=== PATIENT | female | born 1945 | race Caucasian/White ===

== ENCOUNTER 2020-01-15 08:47 | Inpatient (IN) ==
[2020-01-15] MEDS ORDERED: SODIUM CHLORIDE 0.9% 500 ML IV STA ×2 (09:18→10:00)
[2020-01-15 09:31] LABS: Basophils # 0.1 10*3/uL (0.0-0.2); Basophils % 0.4 % (0.0-0.8); Eosinophils # 0.2 10*3/uL (0.0-0.87); Eosinophils % 1.7 % (0.00-10.9); Hematocrit 33.7 VOL% (35.7-47.0); Immature Granulocytes % 0.4 %; Immature Granulocytes Absolute 0.05 #; Lymphocytes # 2.1 10*3/uL (1.4-4.0); Lymphocytes % 17.6 % (21.3-54.2); Mean Corpuscular HGB Conc 32.6 GM/DL (32-36); Mean Corpuscular Volume 96.3 FL (87-102); Mean Platelet Volume 10.5 FL (9.6-12.0); Monocytes % 4.2 % (1.7-12.7); Neutrophils % 75.7 % (38.7-73.9); Platelet Count 233 T/CUMM (130-400); Red Cell Distribution Width 14.4 % (9.3-17.3); White Blood Count 11.9 T/CUMM (4-12)
[2020-01-15 09:45] LABS: INR 4.7; PT Patient Result 50.6 SECS (9.6-12.2)
[2020-01-15 09:49] LABS: Albumin 2.9 G/DL (3.4-5.0); Bilirubin,Total 0.4 MG/DL (0.2-1.0); Calcium 8.9 MG/DL (8.5-10.1); Osmolality,Calculated 278.7 MOS/KG (273-304); Total Protein 7.2 G/DL (6.4-8.3)
[2020-01-15] MEDS ORDERED: PHYTONADIONE 10 MG/1 ML AMP SUBCUT STA (10:57)
[2020-01-15] MEDS ORDERED: MORPHINE 4 MG/1 ML VIAL IV PRN (11:13)
[2020-01-15] MEDS ORDERED: DEXTROSE 10% 250 ML BAG IV PRN (11:13)
[2020-01-15] MEDS ORDERED: GLUCAGON 1 MG VIAL IM PRN (11:13)
[2020-01-15] MEDS ORDERED: ONDANSETRON 4 MG/2 ML VIAL IV PRN (11:13)
[2020-01-15] MEDS ORDERED: NICOTINE 21 MG/24 HR PATCH TRANSDERM PRN (11:13)
[2020-01-15 14:18] LABS: Hematocrit 31.3 VOL% (35.7-47.0); Hemoglobin 9.9 GM/DL (12.0-16.0)
[2020-01-15] MEDS: SODIUM CHLORIDE 0.9% 1,000 ML IV SCH ×2 (14:45→21:56)
[2020-01-15] MEDS: BACLOFEN 10 MG TABLET PO SCH ×2 (16:07→21:22)
[2020-01-15 20:12] LABS: Hematocrit 24.1 VOL% (35.7-47.0); Hemoglobin 7.6 GM/DL (12.0-16.0)
[2020-01-15] MEDS: clonazePAM 0.5 MG TABLET PO SCH (21:21)
[2020-01-15] MEDS: OXcarbazepine 300 MG TABLET PO SCH (21:22)
[2020-01-15] MEDS: levETIRAcetam 500 MG TABLET PO SCH (21:22)
[2020-01-15] MEDS: ACETAMINOPHEN 325 MG TABLET PO PRN (21:53)
[2020-01-16 01:02] LABS: Hemoglobin 8.6 GM/DL (12.0-16.0)
[2020-01-16 05:34] LABS: INR 2.2
[2020-01-16 05:38] LABS: PT Patient Result 24.2 SECS (9.6-12.2)
[2020-01-16 05:51] LABS: Calcium 7.6 MG/DL (8.5-10.1); Osmolality,Calculated 279.1 MOS/KG (273-304)
[2020-01-16] MEDS: SODIUM CHLORIDE 0.9% 1,000 ML IV SCH (05:59)
[2020-01-16] MEDS: LEVOTHYROXINE 100 MCG TABLET PO SCH (05:59)
[2020-01-16] MEDS: ACETAMINOPHEN 325 MG TABLET PO PRN ×4 (06:01→20:57)
[2020-01-16 06:41] LABS: Basophils % 0.6 % (0.0-0.8); Eosinophils # 0.1 10*3/uL (0.0-0.87); Eosinophils % 1.3 % (0.00-10.9); Hematocrit 25.7 VOL% (35.7-47.0); Hemoglobin 8.5 GM/DL (12.0-16.0); Immature Granulocytes % 0.3 %; Immature Granulocytes Absolute 0.02 #; Lymphocytes # 2.1 10*3/uL (1.4-4.0); Lymphocytes % 28.7 % (21.3-54.2); Mean Corpuscular HGB Conc 33.1 GM/DL (32-36); Mean Corpuscular Volume 94.8 FL (87-102); Mean Platelet Volume 11.2 FL (9.6-12.0); Monocytes % 7.4 % (1.7-12.7); Neutrophils % 61.7 % (38.7-73.9); Red Cell Distribution Width 14.4 % (9.3-17.3)
[2020-01-16 06:45] LABS: Platelet Count 177 T/CUMM (130-400); Red Blood Count 2.71 MC/CUMM (3.8-5.5); White Blood Count 7.2 T/CUMM (4-12)
[2020-01-16 07:54] LABS: Hematocrit 24.9 VOL% (35.7-47.0); Hemoglobin 8.3 GM/DL (12.0-16.0)
[2020-01-16] MEDS: levETIRAcetam 500 MG TABLET PO SCH ×2 (09:18→20:58)
[2020-01-16] MEDS: EZETIMIBE 10 MG TABLET PO SCH (09:20)
[2020-01-16] MEDS: OXcarbazepine 300 MG TABLET PO SCH ×2 (09:20→20:58)
[2020-01-16] MEDS: ROSUVASTATIN 20 MG TABLET PO SCH (09:21)
[2020-01-16] MEDS: FLUDROCORTISONE 0.1 MG TABLET PO SCH (09:21)
[2020-01-16] MEDS: BACLOFEN 10 MG TABLET PO SCH ×3 (09:21→20:58)
[2020-01-16] MEDS ORDERED: POLYETHYLENE GLYCOL POWDER 17 GM PACK PO PRN (13:17)
[2020-01-16] MEDS: clonazePAM 0.5 MG TABLET PO SCH (20:58)
[2020-01-17] MEDS: ACETAMINOPHEN 325 MG TABLET PO PRN ×2 (02:42→14:08)
[2020-01-17 04:54] LABS: Basophils % 0.6 % (0.0-0.8); Eosinophils # 0.1 10*3/uL (0.0-0.87); Eosinophils % 1.8 % (0.00-10.9); Hematocrit 25.8 VOL% (35.7-47.0); Hemoglobin 8.2 GM/DL (12.0-16.0); Immature Granulocytes % 0.6 %; Immature Granulocytes Absolute 0.04 #; Lymphocytes # 2.7 10*3/uL (1.4-4.0); Lymphocytes % 37.5 % (21.3-54.2); Mean Corpuscular HGB Conc 31.8 GM/DL (32-36); Mean Corpuscular Volume 96.3 FL (87-102); Mean Platelet Volume 10.7 FL (9.6-12.0); Monocytes % 6.6 % (1.7-12.7); Neutrophils % 52.9 % (38.7-73.9); Platelet Count 188 T/CUMM (130-400); Red Blood Count 2.68 MC/CUMM (3.8-5.5); Red Cell Distribution Width 14.2 % (9.3-17.3); White Blood Count 7.1 T/CUMM (4-12)
[2020-01-17 04:58] LABS: INR 1.1
[2020-01-17] MEDS: LEVOTHYROXINE 100 MCG TABLET PO SCH (06:31)
[2020-01-17] MEDS: FLUDROCORTISONE 0.1 MG TABLET PO SCH (08:50)
[2020-01-17] MEDS: levETIRAcetam 500 MG TABLET PO SCH ×2 (08:53→21:51)
[2020-01-17] MEDS: EZETIMIBE 10 MG TABLET PO SCH (08:53)
[2020-01-17] MEDS: OXcarbazepine 300 MG TABLET PO SCH ×2 (08:53→21:52)
[2020-01-17] MEDS: BACLOFEN 10 MG TABLET PO SCH ×3 (08:53→21:52)
[2020-01-17] MEDS: ROSUVASTATIN 20 MG TABLET PO SCH (08:53)
[2020-01-17] MEDS: clonazePAM 0.5 MG TABLET PO SCH (21:51)
[2020-01-18] MEDS: ACETAMINOPHEN 325 MG TABLET PO PRN ×2 (00:19→09:12)
[2020-01-18] MEDS: LEVOTHYROXINE 100 MCG TABLET PO SCH (05:56)
[2020-01-18 05:59] LABS: Basophils % 0.6 % (0.0-0.8); Eosinophils # 0.2 10*3/uL (0.0-0.87); Eosinophils % 3.4 % (0.00-10.9); Hematocrit 24.4 VOL% (35.7-47.0); Hemoglobin 8.1 GM/DL (12.0-16.0); Immature Granulocytes % 0.4 %; Immature Granulocytes Absolute 0.02 #; Mean Corpuscular HGB Conc 33.2 GM/DL (32-36); Mean Corpuscular Volume 93.8 FL (87-102); Mean Platelet Volume 10.8 FL (9.6-12.0); Monocytes % 7.1 % (1.7-12.7); Neutrophils % 48.5 % (38.7-73.9); Platelet Count 178 T/CUMM (130-400); Red Cell Distribution Width 14.2 % (9.3-17.3); White Blood Count 5.1 T/CUMM (4-12)
[2020-01-18 08:12] LABS: PT Patient Result 10.4 SECS (9.6-12.2)
[2020-01-18] MEDS: OXcarbazepine 300 MG TABLET PO SCH (09:11)
[2020-01-18] MEDS: levETIRAcetam 500 MG TABLET PO SCH (09:12)
[2020-01-18] MEDS: ROSUVASTATIN 20 MG TABLET PO SCH (09:12)
[2020-01-18] MEDS: FLUDROCORTISONE 0.1 MG TABLET PO SCH (09:12)
[2020-01-18] MEDS: BACLOFEN 10 MG TABLET PO SCH (09:13)
[2020-01-18] MEDS: EZETIMIBE 10 MG TABLET PO SCH (09:13)
[2020-01-18] MEDS ORDERED: ASPIRIN EC 81 MG TABLET PO SCH (10:30)
[2020-01-18 11:44] VITALS: BP 115/61
[2020-01-18] MEDS ORDERED: WARFARIN 3 MG TABLET PO SCH (18:00)
[2020-01-19] MEDS ORDERED: WARFARIN 2 MG TABLET PO SCH ×2 (18:00)
== END 2020-01-18 11:25 | disposition swing bed (61) | DRG 556 ==
LOC: N.ED 08:47 → N.EDINP 11:13 → N.2E 11:57
PROVIDERS: ADMIT Family Medicine; ATTEND Family Medicine

== ENCOUNTER 2020-06-25 15:43 | Observation (INO) ==
[2020-06-25 16:25] LABS: Basophils % 0.5 % (0.0-0.8); Eosinophils # 0.1 10*3/uL (0.0-0.87); Eosinophils % 0.6 % (0.00-10.9); Hematocrit 46.7 VOL% (35.7-47.0); Hemoglobin 15.4 GM/DL (12.0-16.0); Immature Granulocytes % 0.4 %; Immature Granulocytes Absolute 0.03 #; Lymphocytes # 3.1 10*3/uL (1.4-4.0); Lymphocytes % 39.2 % (21.3-54.2); Mean Corpuscular Volume 92.8 FL (87-102); Mean Platelet Volume 10.4 FL (9.6-12.0); Monocytes % 4.8 % (1.7-12.7); Neutrophils % 54.5 % (38.7-73.9); Platelet Count 233 T/CUMM (130-400); Red Blood Count 5.03 MC/CUMM (3.8-5.5); Red Cell Distribution Width 15.4 % (9.3-17.3); White Blood Count 7.9 T/CUMM (4-12)
[2020-06-25 16:35] LABS: PT Patient Result 10.4 SECS (9.8-11.9); Partial Thromboplastin Time 28.3 SECS (23.9-33.8)
[2020-06-25 16:50] LABS: Troponin I < 0.015 NG/ML (0.00-0.045)
[2020-06-25 17:02] LABS: Alanine Aminotransferase 31 U/L (13-56); Albumin 3.6 G/DL (3.4-5.0); Alkaline Phosphatase 76 U/L (45-117); Aspartate Amino Transferase 22 U/L (0-37); Bilirubin,Total < 0.39 MG/DL (0.2-1.0); Blood Urea Nitrogen 20 MG/DL (7-18); Calcium 9.1 MG/DL (8.5-10.1); Estimated Glom Filtration Rate 87 ML/MIN; Glucose 104 MG/DL (74-106); Osmolality,Calculated 281.4 MOS/KG (273-304); Total Protein 8.5 G/DL (6.4-8.3)
[2020-06-25] MEDS ORDERED: KETOROLAC 60 MG/2 ML VIAL IM ONE (17:15)
[2020-06-25] MEDS ORDERED: ONDANSETRON 4 MG/2 ML VIAL IV PRN (18:43)
[2020-06-25] MEDS ORDERED: GLUCAGON 1 MG VIAL IM PRN (18:43)
[2020-06-25] MEDS ORDERED: DEXTROSE 50% 25 GM/50 ML VIAL IV PRN (18:43)
[2020-06-25] MEDS ORDERED: POLYETHYLENE GLYCOL POWDER 17 GM PACK PO PRN ×2 (18:48→21:55)
[2020-06-25] MEDS ORDERED: WARFARIN 2 MG TABLET PO SCH (19:00)
[2020-06-25] MEDS ORDERED: OXcarbazepine 300 MG TABLET PO SCH ×2 (21:00→22:00)
[2020-06-25] MEDS ORDERED: NON-FORMULARY MEDICATION (Levetiracetam [Keppra] 750 MG) PO SCH (21:00)
[2020-06-25] MEDS ORDERED: ENOXAPARIN 40 MG/0.4 ML SYRINGE SUBCUT SCH (21:00)
[2020-06-25] MEDS ORDERED: BACLOFEN 10 MG TABLET PO SCH (21:00)
[2020-06-25] MEDS ORDERED: WARFARIN 4 MG TABLET PO SCH ×2 (23:00)
[2020-06-25] MEDS: carvediloL 3.125 MG TABLET PO SCH (23:40)
[2020-06-25] MEDS: BACLOFEN 10 MG TABLET PO SCH (23:41)
[2020-06-25 23:51] LABS: Troponin I < 0.015 NG/ML (0.00-0.045)
[2020-06-26 02:26] LABS: Troponin I < 0.015 NG/ML (0.00-0.045)
[2020-06-26] MEDS: ACETAMINOPHEN 325 MG TABLET PO PRN ×2 (04:21→08:54)
[2020-06-26] MEDS ORDERED: LEVOTHYROXINE 50 MCG TABLET PO SCH ×2 (06:30→09:00)
[2020-06-26] MEDS: BACLOFEN 10 MG TABLET PO SCH (08:53)
[2020-06-26] MEDS: carvediloL 3.125 MG TABLET PO SCH (08:54)
[2020-06-26] MEDS ORDERED: ROSUVASTATIN 20 MG TABLET PO SCH ×2 (09:00→21:00)
[2020-06-26] MEDS ORDERED: levETIRAcetam 500 MG TABLET PO SCH (09:00)
[2020-06-26] MEDS ORDERED: EZETIMIBE 10 MG TABLET PO SCH ×2 (09:00)
[2020-06-26] MEDS ORDERED: ASPIRIN EC 325 MG TABLET PO SCH (09:00)
[2020-06-26] MEDS ORDERED: POTASSIUM CHLORIDE 10 MEQ TABLET PO SCH (09:00)
[2020-06-26] MEDS ORDERED: lisinopriL 2.5 MG TABLET PO SCH ×2 (09:00)
[2020-06-26] MEDS ORDERED: FLUDROCORTISONE 0.1 MG TABLET PO SCH ×2 (09:00)
[2020-06-26] MEDS ORDERED: levETIRAcetam 250 MG TABLET PO SCH (09:00)
[2020-06-26] MEDS ORDERED: PANTOPRAZOLE 40 MG TABLET PO SCH (09:00)
[2020-06-26] MEDS ORDERED: WARFARIN 5 MG TABLET PO ONE (09:55)
[2020-06-26] MEDS ORDERED: ENOXAPARIN 60 MG/0.6 ML SYRINGE SUBCUT ONE (09:56)
[2020-06-26] MEDS ORDERED: ENOXAPARIN 60 MG/0.6 ML SYRINGE SUBCUT SCH (10:00)
[2020-06-26 12:42] VITALS: BP 148/67
[2020-06-26] MEDS ORDERED: WARFARIN 3 MG TABLET PO SCH ×3 (17:00→18:00)
[2020-06-26] MEDS ORDERED: WARFARIN 2 MG TABLET PO SCH (18:48)
[2020-06-27] MEDS ORDERED: WARFARIN 4 MG TABLET PO SCH (18:00)
== END 2020-06-26 12:49 | disposition home or self-care (01) ==
LOC: N.TELEN 15:43 → N.EDINP 15:43 → N.ED 15:43 → N.EDINP 21:40 → UNDODISOB 21:44
PROVIDERS: ADMIT Internal Medicine; ATTEND Internal Medicine

== ENCOUNTER 2021-11-11 13:09 | Inpatient (IN) ==
[2021-11-11 14:07] LABS: Basophils % 0.2 % (0.0-0.8); Eosinophils # 0.1 10*3/uL (0.0-0.87); Hematocrit 35.2 VOL% (35.7-47.0); Hemoglobin 11.4 GM/DL (12.0-16.0); Immature Granulocytes % 0.5 %; Immature Granulocytes Absolute 0.04 #; Lymphocytes # 2.5 10*3/uL (1.4-4.0); Lymphocytes % 29.5 % (21.3-54.2); Mean Corpuscular HGB Conc 32.4 GM/DL (32-36); Mean Corpuscular Volume 95.7 FL (87-102); Mean Platelet Volume 9.5 FL (9.6-12.0); Monocytes % 5.1 % (1.7-12.7); Neutrophils % 63.7 % (38.7-73.9); Platelet Count 180 T/CUMM (130-400); Red Blood Count 3.68 MC/CUMM (3.8-5.5); Red Cell Distribution Width 14.5 % (9.3-17.3); White Blood Count 8.4 T/CUMM (4-12)
[2021-11-11 14:36] LABS: Alanine Aminotransferase 187 U/L (13-56); Alkaline Phosphatase 92 U/L (45-117); Aspartate Amino Transferase 178 U/L (0-37); Bilirubin,Total < 0.39 MG/DL (0.20-1.00); Blood Urea Nitrogen 16 MG/DL (7-18); Calcium 8.1 MG/DL (8.5-10.1); Carbon Dioxide 22 MMOL/L (21-32); Estimated Glom Filtration Rate 77 ML/MIN; Glucose 110 MG/DL (74-106); Osmolality,Calculated 280.4 MOS/KG (273-304); Potassium 4.4 MMOL/L (3.5-5.1); Sodium 140 MMOL/L (136-145); Total Protein 6.5 G/DL (6.4-8.2)
[2021-11-11 14:43] LABS: Anisocytosis 1+; Platelet Estimate Normal
[2021-11-11] MEDS ORDERED: PIPERACILLIN/TAZOBACTAM 3,375 MG in SODIUM CHLORIDE 0.9% 100 ML IV STA (15:30)
[2021-11-11] MEDS ORDERED: diphenhydrAMINE CAP 25 MG CAPSULE PO PRN (16:22)
[2021-11-11] MEDS ORDERED: hydrALAZINE 20 MG/1 ML VIAL IV PRN (16:22)
[2021-11-11] MEDS ORDERED: ZALEPLON 5 MG CAPSULE PO PRN (16:22)
[2021-11-11] MEDS ORDERED: GLUCAGON 1 MG VIAL IM PRN (16:22)
[2021-11-11] MEDS ORDERED: ONDANSETRON 4 MG/2 ML VIAL IV PRN (16:22)
[2021-11-11] MEDS ORDERED: NICOTINE 21 MG/24 HR PATCH TRANSDERM PRN (16:22)
[2021-11-11] MEDS ORDERED: DOCUSATE SODIUM 100 MG CAPSULE PO PRN (16:22)
[2021-11-11] MEDS ORDERED: guaiFENesin/DM ER 600-30 MG TABLET PO PRN (16:22)
[2021-11-11] MEDS ORDERED: ALBUTEROL 2.5 MG/3 ML NEB RESP TX PRN (16:22)
[2021-11-11 16:24] LABS: INR 3.5; PT Patient Result 36.1 SECS (10.5-12.0)
[2021-11-11] MEDS ORDERED: DEXTROSE 10% 250 ML BAG IV PRN (16:33)
[2021-11-11] MEDS: AZITHROMYCIN INJ 500 MG in SODIUM CHLORIDE 0.9% 250 ML IV SCH (17:40)
[2021-11-11] MEDS ORDERED: WARFARIN 2.5 MG TABLET PO SCH (18:00)
[2021-11-11] MEDS ORDERED: WARFARIN 1 MG TABLET PO SCH (18:00)
[2021-11-11] MEDS: ALBUTEROL/IPRATROPIUM 3 ML NEB RESP TX SCH (19:13)
[2021-11-11] MEDS: VANCOMYCIN INJ 1,250 MG in SODIUM CHLORIDE 0.9% 250 ML IV SCH (21:10)
[2021-11-12] MEDS: ALBUTEROL/IPRATROPIUM 3 ML NEB RESP TX SCH ×4 (01:52→20:57)
[2021-11-12] MEDS: PIPERACILLIN/TAZOBACTAM 3,375 MG in SODIUM CHLORIDE 0.9% 100 ML IV SCH ×2 (03:00→11:05)
[2021-11-12 06:06] LABS: Basophils % 0.3 % (0.0-0.8); Eosinophils # 0.1 10*3/uL (0.0-0.87); Eosinophils % 1.5 % (0.00-10.9); Hematocrit 33.5 VOL% (35.7-47.0); Hemoglobin 10.9 GM/DL (12.0-16.0); Immature Granulocytes % 0.5 %; Immature Granulocytes Absolute 0.04 #; Lymphocytes # 2.1 10*3/uL (1.4-4.0); Lymphocytes % 26.7 % (21.3-54.2); Mean Corpuscular HGB Conc 32.5 GM/DL (32-36); Mean Corpuscular Volume 96.3 FL (87-102); Mean Platelet Volume 9.5 FL (9.6-12.0); Monocytes % 4.2 % (1.7-12.7); Neutrophils % 66.8 % (38.7-73.9); Platelet Count 173 T/CUMM (130-400); Red Blood Count 3.48 MC/CUMM (3.8-5.5); Red Cell Distribution Width 14.5 % (9.3-17.3); White Blood Count 7.8 T/CUMM (4-12)
[2021-11-12 06:34] LABS: Calcium 8.3 MG/DL (8.5-10.1); Osmolality,Calculated 276.5 MOS/KG (273-304); Potassium 3.7 MMOL/L (3.5-5.1)
[2021-11-12] MEDS: FLUDROCORTISONE 0.1 MG TABLET PO SCH (09:04)
[2021-11-12] MEDS: EZETIMIBE 10 MG TABLET PO SCH (09:04)
[2021-11-12] MEDS: VANCOMYCIN INJ 1,250 MG in SODIUM CHLORIDE 0.9% 250 ML IV SCH (09:04)
[2021-11-12] MEDS: lisinopriL 2.5 MG TABLET PO SCH (09:04)
[2021-11-12] MEDS: ROSUVASTATIN 20 MG TABLET PO SCH (09:04)
[2021-11-12] MEDS: PANTOPRAZOLE 40 MG TABLET PO SCH (09:05)
[2021-11-12] MEDS: carvediloL 3.125 MG TABLET PO SCH ×2 (09:05→17:17)
[2021-11-12] MEDS: LEVOTHYROXINE 75 MCG TABLET PO SCH (09:05)
[2021-11-12] MEDS: cefTRIAXone 1,000 MG in SODIUM CHLORIDE 0.9% 100 ML IV SCH (11:04)
[2021-11-12] MEDS: AZITHROMYCIN INJ 500 MG in SODIUM CHLORIDE 0.9% 250 ML IV SCH (17:17)
[2021-11-13] MEDS: ACETAMINOPHEN 325 MG TABLET PO PRN ×2 (01:04→18:53)
[2021-11-13] MEDS: ALBUTEROL/IPRATROPIUM 3 ML NEB RESP TX SCH ×4 (02:03→19:51)
[2021-11-13 06:04] LABS: Basophils % 0.3 % (0.0-0.8); Eosinophils # 0.1 10*3/uL (0.0-0.87); Hematocrit 33.3 VOL% (35.7-47.0); Hemoglobin 10.9 GM/DL (12.0-16.0); Immature Granulocytes % 0.6 %; Immature Granulocytes Absolute 0.04 #; Lymphocytes # 2.1 10*3/uL (1.4-4.0); Lymphocytes % 29.7 % (21.3-54.2); Mean Corpuscular HGB Conc 32.7 GM/DL (32-36); Mean Corpuscular Volume 95.4 FL (87-102); Mean Platelet Volume 9.6 FL (9.6-12.0); Monocytes % 4.3 % (1.7-12.7); Neutrophils % 63.1 % (38.7-73.9); Platelet Count 200 T/CUMM (130-400); Red Blood Count 3.49 MC/CUMM (3.8-5.5); Red Cell Distribution Width 14.1 % (9.3-17.3)
[2021-11-13 06:34] LABS: Albumin 1.9 G/DL (3.4-5.0); Bilirubin,Total 1.3 MG/DL (0.20-1.00); Calcium 8.5 MG/DL (8.5-10.1); Osmolality,Calculated 286.8 MOS/KG (273-304); Potassium 3.5 MMOL/L (3.5-5.1)
[2021-11-13 09:36] LABS: Hepatitis B Core IgM Quant 0.08 Index; Hepatitis B Surface Ag Quant 0.18 Index; Hepatitis B Surface Ag Result Non-Reactive (NonReactive); Hepatitis C Virus Ab Quant 0.16 Index; Hepatitis C Virus Ab Result Non-Reactive (NonReactive)
[2021-11-13] MEDS: carvediloL 3.125 MG TABLET PO SCH ×2 (10:40→16:38)
[2021-11-13] MEDS: POLYETHYLENE GLYCOL POWDER 17 GM PACK PO SCH ×2 (10:41→16:36)
[2021-11-13] MEDS: cefTRIAXone 1,000 MG in SODIUM CHLORIDE 0.9% 100 ML IV SCH (10:52)
[2021-11-13] MEDS: AZITHROMYCIN INJ 500 MG in SODIUM CHLORIDE 0.9% 250 ML IV SCH (16:35)
[2021-11-13] MEDS: EZETIMIBE 10 MG TABLET PO SCH (16:37)
[2021-11-13] MEDS: FLUDROCORTISONE 0.1 MG TABLET PO SCH (16:37)
[2021-11-13] MEDS: ROSUVASTATIN 20 MG TABLET PO SCH (16:37)
[2021-11-13] MEDS: PANTOPRAZOLE 40 MG TABLET PO SCH (16:37)
[2021-11-13] MEDS: lisinopriL 2.5 MG TABLET PO SCH (16:38)
[2021-11-13] MEDS: LEVOTHYROXINE 75 MCG TABLET PO SCH (16:39)
[2021-11-14] MEDS: ALBUTEROL/IPRATROPIUM 3 ML NEB RESP TX SCH ×4 (01:00→19:32)
[2021-11-14 05:40] LABS: Basophils % 0.3 % (0.0-0.8); Eosinophils # 0.1 10*3/uL (0.0-0.87); Eosinophils % 0.8 % (0.00-10.9); Hematocrit 35.6 VOL% (35.7-47.0); Hemoglobin 11.5 GM/DL (12.0-16.0); Immature Granulocytes % 0.8 %; Immature Granulocytes Absolute 0.05 #; Lymphocytes # 1.7 10*3/uL (1.4-4.0); Lymphocytes % 25.9 % (21.3-54.2); Mean Corpuscular HGB Conc 32.3 GM/DL (32-36); Mean Corpuscular Volume 94.9 FL (87-102); Mean Platelet Volume 9.4 FL (9.6-12.0); Monocytes % 4.7 % (1.7-12.7); Neutrophils % 67.5 % (38.7-73.9); Platelet Count 265 T/CUMM (130-400); Red Blood Count 3.75 MC/CUMM (3.8-5.5); Red Cell Distribution Width 13.7 % (9.3-17.3); White Blood Count 6.5 T/CUMM (4-12)
[2021-11-14 05:58] LABS: Alanine Aminotransferase 206 U/L (13-56); Albumin 2.1 G/DL (3.4-5.0); Alkaline Phosphatase 113 U/L (45-117); Aspartate Amino Transferase 138 U/L (0-37); Bilirubin,Total < 0.39 MG/DL (0.20-1.00); Blood Urea Nitrogen 12 MG/DL (7-18); Calcium 9.1 MG/DL (8.5-10.1); Carbon Dioxide 24 MMOL/L (21-32); Estimated Glom Filtration Rate 89 ML/MIN; Glucose 129 MG/DL (74-106); Osmolality,Calculated 278.5 MOS/KG (273-304); Potassium 3.1 MMOL/L (3.5-5.1); Sodium 139 MMOL/L (136-145); Total Protein 7.8 G/DL (6.4-8.2)
[2021-11-14] MEDS ORDERED: PHENOL 1.4% THROAT SPRAY 177 ML BOTTLE PO PRN (09:58)
[2021-11-14] MEDS ORDERED: MAGNESIUM CITRATE 300 ML BOTTLE PO ONE (11:07)
[2021-11-14] MEDS ORDERED: BISACODYL 10 MG SUPP RECTAL ONE (11:08)
[2021-11-14] MEDS ORDERED: POTASSIUM CHLORIDE 20 MEQ TABLET PO ONE (12:50)
[2021-11-14 13:34] LABS: INR 2.1; PT Patient Result 22.4 SECS (10.5-12.0)
[2021-11-14] MEDS: carvediloL 3.125 MG TABLET PO SCH ×2 (13:36→18:04)
[2021-11-14] MEDS: POLYETHYLENE GLYCOL POWDER 17 GM PACK PO SCH (15:15)
[2021-11-14] MEDS: FLUDROCORTISONE 0.1 MG TABLET PO SCH (15:15)
[2021-11-14] MEDS: PANTOPRAZOLE 40 MG TABLET PO SCH (15:15)
[2021-11-14] MEDS: LEVOTHYROXINE 75 MCG TABLET PO SCH (15:15)
[2021-11-14] MEDS: ROSUVASTATIN 20 MG TABLET PO SCH (15:15)
[2021-11-14] MEDS: EZETIMIBE 10 MG TABLET PO SCH (15:15)
[2021-11-14] MEDS: lisinopriL 2.5 MG TABLET PO SCH (15:20)
[2021-11-14] MEDS: AZITHROMYCIN INJ 500 MG in SODIUM CHLORIDE 0.9% 250 ML IV SCH (18:04)
[2021-11-14] MEDS ORDERED: WARFARIN 1 MG TABLET PO SCH (21:00)
[2021-11-14] MEDS: cefTRIAXone 1,000 MG in SODIUM CHLORIDE 0.9% 100 ML IV SCH (21:29)
[2021-11-14] MEDS: ACETAMINOPHEN 325 MG TABLET PO PRN (21:30)
[2021-11-15] MEDS: ALBUTEROL/IPRATROPIUM 3 ML NEB RESP TX SCH ×2 (01:55→07:50)
[2021-11-15 05:03] LABS: Basophils % 0.1 % (0.0-0.8); Hemoglobin 11.8 GM/DL (12.0-16.0); Immature Granulocytes % 1.3 %; Lymphocytes # 1.8 10*3/uL (1.4-4.0); Lymphocytes % 22.1 % (21.3-54.2); Mean Corpuscular HGB Conc 32.8 GM/DL (32-36); Mean Corpuscular Volume 93.8 FL (87-102); Monocytes % 2.8 % (1.7-12.7); Neutrophils % 73.7 % (38.7-73.9); Platelet Count 339 T/CUMM (130-400); Red Blood Count 3.84 MC/CUMM (3.8-5.5); Red Cell Distribution Width 13.8 % (9.3-17.3); White Blood Count 7.9 T/CUMM (4-12)
[2021-11-15 05:44] LABS: Alanine Aminotransferase 170 U/L (13-56); Albumin 2.3 G/DL (3.4-5.0); Alkaline Phosphatase 102 U/L (45-117); Aspartate Amino Transferase 84 U/L (0-37); Bilirubin,Total < 0.39 MG/DL (0.20-1.00); Blood Urea Nitrogen 15 MG/DL (7-18); Carbon Dioxide 22 MMOL/L (21-32); Estimated Glom Filtration Rate 89 ML/MIN; Glucose 175 MG/DL (74-106); Osmolality,Calculated 281.5 MOS/KG (273-304); Potassium 3.7 MMOL/L (3.5-5.1); Sodium 139 MMOL/L (136-145); Total Protein 8.2 G/DL (6.4-8.2)
[2021-11-15 06:06] LABS: INR 1.5; PT Patient Result 16.1 SECS (10.5-12.0)
[2021-11-15 07:52] VITALS: BP 143/77
[2021-11-15] MEDS: FLUDROCORTISONE 0.1 MG TABLET PO SCH (09:33)
[2021-11-15] MEDS: EZETIMIBE 10 MG TABLET PO SCH (09:33)
[2021-11-15] MEDS: ROSUVASTATIN 20 MG TABLET PO SCH (09:34)
[2021-11-15] MEDS: lisinopriL 2.5 MG TABLET PO SCH (09:34)
[2021-11-15] MEDS: carvediloL 3.125 MG TABLET PO SCH (09:34)
[2021-11-15] MEDS: LEVOTHYROXINE 75 MCG TABLET PO SCH (09:35)
[2021-11-15] MEDS: PANTOPRAZOLE 40 MG TABLET PO SCH (09:36)
[2021-11-15] MEDS: POLYETHYLENE GLYCOL POWDER 17 GM PACK PO SCH (09:38)
[2021-11-15] MEDS: cefTRIAXone 1,000 MG in SODIUM CHLORIDE 0.9% 100 ML IV SCH (09:38)
== END 2021-11-15 11:26 | DRG 194 ==
LOC: EDUNIT# → EDBD → N.ED 13:09 → N.EDINP 16:22 → N.5E 21:58
PROVIDERS: ADMIT Internal Medicine; ATTEND Internal Medicine